=== PATIENT | female | born 1940 | race Caucasian/White ===

== ENCOUNTER 2022-11-04 18:13 | Inpatient (IN) | payer MEDICARE, OTHER ==
[~2022-11-04] VITALS: Ht 165.1 cm; Wt 79.4 kg
[~2022-11-04 18:13] MED LIST: ASPI1TAB2 PO; Rivaroxaban PO
--- NOTE | 2022-11-04 19:00 | NUR ---
TO ER BED 2. [id number] FROM HOME C/O BURNING URINATION X 2 DAYS AND SOB. DENIES HEMATURIA, DENIES FLANK PAIN. PT IS ALERT AND ORIENTED . AMBULATORY W/ ASSISTANCE. 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 LIVES WITH DAUGHTER. RR EVEN AND NON LABORED. CONNECTED TO POX AND HEART MONITOR
--- NOTE | 2022-11-04 19:53 | NUR ---
EMT AT PT'S BEDSIDE FOR EKG
--- NOTE | 2022-11-04 19:56 | NUR ---
AQUARIST AT PT'S BEDSIDE
--- NOTE | 2022-11-04 20:02 | NUR ---
IV LINE ESTABLISHED, RHAND 22G
--- NOTE | 2022-11-04 20:03 | NUR ---
COVID SWAB COLLECTED
--- NOTE | 2022-11-04 20:03 | NUR ---
BLOOD COLLECTED AND SENT TO LAB
--- NOTE | 2022-11-04 20:03 | NUR ---
URINE COLLECTED AND SENT TO LAB
[2022-11-04 20:19] LABS: BASOPHILS # (AUTO) 0.1 K/uL (0.0-0.2); MEAN CORPUSCULAR VOLUME 59 fL (82-100)
[2022-11-04 20:26] LABS: BILIRUBIN,URINE NEGATIVE (NEGATIVE); COLOR,URINE YELLOW (YELLOW); LEUKOCYTE ESTERASE ,URINE NEGATIVE (NEGATIVE); NITRITE, URINE NEGATIVE (NEGATIVE); PH,URINE 5.5 (5.0-8.0); PROTEIN,URINE NEGATIVE (NEGATIVE); UGLUCOSE NEGATIVE (NEGATIVE); UROBILINOGEN,URINE 0.2 EU/dL (0.2)
[2022-11-04 20:27] LABS: BASOPHILS % (AUTO) 1.2 % (0.0-2.0); LYMPHOCYTES # (AUTO) 2.5 K/uL (0.8-4.8); LYMPHOCYTES % (AUTO) 25.9 % (20.0-44.0); MEAN CORPUSCULAR HGB CONC 27 g/dl (31.0-36.0); MONOCYTES # (AUTO) 0.8 K/uL (0.1-1.30); MONOCYTES % (AUTO) 7.9 % (2.0-12.0); NEUTROPHILS # (AUTO) 5.4 K/uL (1.8-8.9); PLATELET COUNT (AUTO) 390 K/uL (150-450); WHITE BLOOD COUNT (AUTO) 9.5 K/uL (4.3-11.0)
[2022-11-04 20:43] LABS: HEMATOCRIT 19 % (33-45); HEMOGLOBIN 5.1 g/dL (11.5-14.8)
--- NOTE | 2022-11-04 20:44 | NUR ---
HGB 5.1, AWARE
--- NOTE | 2022-11-04 20:56 | NUR ---
CONSENT FOR BLOOD TRANSFUSSION SIGNED
[2022-11-04 21:20] LABS: EOSINOPHILS % (MANUAL) 4 % (0-4); LYMPHOCYTES % (MANUAL) 16 % (16-48); MONOCYTES % (MANUAL) 10 % (0-11.0); NEUTROPHILS % (MANUAL) 70 (42-76)
[2022-11-04] MEDS ORDERED: NAPROXEN 250 MG TABLET PO ONE (21:30)
[2022-11-04] MEDS ORDERED: NAPROXEN 250 MG TABLET ONE (21:32)
--- NOTE | 2022-11-04 21:54 | NUR ---
DR ONEILL ON THE PHONE EVERETT FROST , HOSPITALIST
[2022-11-04 22:02] LABS: ALBUMIN 3.3 g/dL (3.4-5.0); ALKALINE PHOSPHATASE 72 U/L (46-116); ASPARTATE AMINOTRANSFERASE 14 U/L (15-37); BILIRUBIN,DIRECT 0.2 mg/dL (0.0-0.2); BILIRUBIN,TOTAL 0.8 mg/dL (0.2-1.0); CALCIUM, SERUM 9.1 mg/dL (8.5-10.1); CARBON DIOXIDE 22 mmol/L (21-32); CHLORIDE 102 mmol/L (98-107); GLUCOSE 104 mg/dL (74-106); POTASSIUM 4.4 mmol/L (3.5-5.1); SODIUM SERUM 137 mmol/L (136-145); TOTAL PROTEIN, SERUM 6.7 g/dL (6.4-8.2); UREA NITROGEN, BLOOD 33 mg/dL (7-18)
--- NOTE | 2022-11-04 22:09 | NUR ---
LACTIC ACID 2.0, AWARE
--- NOTE | 2022-11-04 22:16 | NUR ---
MILK RUNNER AT PT'S BEDSIDE
--- NOTE | 2022-11-04 22:17 | NUR ---
BED 112-2
[2022-11-04 22:23] LABS: ALANINE AMINOTRANSFERASE 10 U/L (12-78)
--- NOTE | 2022-11-04 22:46 | NUR ---
FROST REINFORCING METAL WORKER AT PT'S BEDSIDE TO INSERTED MIDLINE
--- NOTE | 2022-11-04 22:57 | NUR ---
MIDLINE TO ROBYN INSERTED BY NIGEL FROST
[2022-11-04] MEDS: HYDROCODONE/APAP 5/325MG TABLET PO PRN (23:00)
--- NOTE | 2022-11-04 23:05 | NUR ---
REPORT GIVEN TO LUKAS PERALTA FOR KIMBERLY
--- NOTE | 2022-11-04 23:10 | NUR ---
BLOOD DRAWN AND GIVEN TO LAB
[2022-11-04] MEDS ORDERED: IOHEXOL-350 100 ML VIAL IV ONE (23:20)
[2022-11-04] MEDS ORDERED: IV NS 0.9% 250 ML IV ONE (23:21)
--- NOTE | 2022-11-04 23:30 | NUR ---
PT TAKEN TO CT SCAN
--- NOTE | 2022-11-04 23:40 | NUR ---
STEELWORKER NOTE RECEIVED REPORT FROM NURSE SUMA. PT BEING ADMITTED IN ROOM 112 WITH DIAGNOSIS OF ANEMIA, WITH HGB: 5.1. PT A/O X 4, ABLE TO MAKE NEEDS KNOWN. ABLE TO AMBULATE TO BATHROOM WITH ASSIST. PT HAS BRUISES TO RIGHT ARM, RIGHT LEG/THIGH, REDNESS TO SACRUM, AND PITTING EDEMA TO BLE. PICTURES NOT TAKEN DUE TO CAMERA NOT WORKING. ADMISSION COMPLETED. SHEREE FROM IMAGING CALLS WITH RESULT OF CT ANGIO. 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 MD CALLED RIGHT AWAY, AND MADE AWARE OF CT ANGIO RESULT. MD STATES THAT HE CAN NOT DO ANYTHING AT THIS TIME DUE TO PT BEING VERY ANEMIC. NO NEW ORDERS RECEIVED. SAFETY MEASURES IN PLACE: BED IN LOW POSITION, CALL LIGHT WITHIN REACH, SR UP X 2. WILL CONTINUE TO MONITOR PT.
[2022-11-04] MEDS ORDERED: TEMAZEPAM 7.5 MG CAPSULE PO PRN (23:45)
[2022-11-05] VITALS (8 sets, daily range): BP systolic 90–130; BP diastolic 30–74
[2022-11-05] MEDS ORDERED: ONDANSETRON HCL/PF 4 MG/2 ML VIAL IVP PRN
[2022-11-05] MEDS ORDERED: Z GUARD REMEDY 4 OZ OINT TP PRN
--- NOTE | 2022-11-05 03:35 | NUR ---
RIB CLOTH KNITTER NOTE ORDERED 2 UNITS OF BLOOD DUE TO LOW HGB: 5.1. BLOOD PICKED UP FORM LAB. BLOOD TRANSFUSION STARTED. VS: BP: 118/74, P:72, R:24, T:97.5, O2: 99. PT ON O2, 2LPM VIA N/C.
--- NOTE | 2022-11-05 03:50 | NUR ---
TIMBER POISONER NOTE BLOOD TRANSFUSION STILL RUNNING. NO S/S OF RESPIRATORY DISTRESS NOTED AFTER 15 MIN, NO ALLERGIC REACTION, VS FOLLOW: BP: 115/86, P: 61, R: 22, T: 98.0, 02: 100%. WILL CONTINUE TO MONITOR PT.
--- NOTE | 2022-11-05 06:50 | NUR ---
RN CLOSING NOTE BLOOD TRANSFUSION COMPLETED. PT TOLERATED BLOOD TRANSFUSION WELL; NO ALLERGIC REACTION NOTED. PT LEFT RESTING IN BED, AWAKE. PT IS CLEANED, AND CHANGED. NO ALL NEEDS ATTENDED. NO C/O PAIN AT THIS TIME. NO ACUTE DISTRESS NOTED. PT HAS MIDLINE TO RIGHT UA, AND RIGHT WRIST IV ACCESS, BOTH PATENT, AND FLUSHING WELL. SAFETY MEASURES IMPLEMENTED. WILL ENDORSE PT TO AM NURSE FOR KIMBERLY.
--- NOTE | 2022-11-05 07:29 | NUR ---
RN OPENING NOTE RECEIVED PATIENT AWAKE A/OX3 SITTING IN BED ABLE TO MAKE NEEDS KNOWN ON NASAL CANNULA 3L WITH NO CURRENT SIGNS OF RESPIRATORY DISTRESS. PATIENT JUST FINISHED RECEIVING ONE UNIT OF PRBC AND ONE UNIT IS PENDING. IF ACCESS NOTED TO BE A MIDLINE. PATIENT IS AMBULATORY BUT REMINDED TO CALL IF SHE NEEDS HELP. SAFETY MEASURE SIN PLACE PER HOSPITAL POLICY.
[2022-11-05] MEDS ORDERED: PANTOPRAZOLE 40 MG TABLET.DR PO SCH (07:30)
[2022-11-05] MEDS: CARVEDILOL 12.5 MG TABLET PO SCH ×2 (08:30→16:11)
[2022-11-05] MEDS ORDERED: ATOR10TA PO (09:53)
[2022-11-05] MEDS ORDERED: CARV25TA2 PO (09:53)
[2022-11-05] MEDS ORDERED: ASPI-1169 PO (09:53)
[2022-11-05] MEDS ORDERED: LOSA50TA39 PO (09:53)
[2022-11-05] MEDS ORDERED: ESOM20CA PO (09:53)
[2022-11-05] MEDS: HYDROCODONE/APAP 5/325MG TABLET PO PRN (09:55)
--- NOTE | 2022-11-05 11:10 | NUR ---
RN NOTE SECOND PRBC TRANSFUSED, NO REACTION NOTED PATIENT WILL BE DRAWN FOR LABS 1200.
[2022-11-05 13:12] LABS: BASOPHILS # (AUTO) 0.1 K/uL (0.0-0.2); BASOPHILS % (AUTO) 0.6 % (0.0-2.0); EOSINOPHILS % (AUTO) 7.7 % (0.0-6.0); HEMATOCRIT 25 % (33-45); HEMOGLOBIN 7.2 g/dL (11.5-14.8); LYMPHOCYTES # (AUTO) 1.1 K/uL (0.8-4.8); LYMPHOCYTES % (AUTO) 11.9 % (20.0-44.0); MEAN CORPUSCULAR HGB CONC 29 g/dl (31.0-36.0); MEAN CORPUSCULAR VOLUME 68 fL (82-100); MONOCYTES # (AUTO) 1.1 K/uL (0.1-1.30); MONOCYTES % (AUTO) 11.4 % (2.0-12.0); NEUTROPHILS # (AUTO) 6.4 K/uL (1.8-8.9); NEUTROPHILS % (AUTO) 68.4 % (43.0-81.0); PLATELET COUNT (AUTO) 309 K/uL (150-450); WHITE BLOOD COUNT (AUTO) 9.4 K/uL (4.3-11.0)
[2022-11-05 13:29] LABS: CALCIUM, SERUM 8.7 mg/dL (8.5-10.1); CARBON DIOXIDE 26 mmol/L (21-32); CHLORIDE 105 mmol/L (98-107); CREATININE 1.8 mg/dL (0.6-1.3); GLUCOSE 109 mg/dL (74-106); MAGNESIUM 1.8 mg/dL (1.8-2.4); PHOSPHORUS 4.3 mg/dL (2.5-4.9); POTASSIUM 4.2 mmol/L (3.5-5.1); SODIUM SERUM 138 mmol/L (136-145); UREA NITROGEN, BLOOD 30 mg/dL (7-18)
[2022-11-05 13:32] LABS: IRON, SERUM 139 ug/dl (50-175); TOTAL IRON BINDING CAPACITY 338 ug/dl (250-450)
[2022-11-05 13:45] LABS: FERRITIN 7 ng/mL (8-388); THYROID STIMULATING HORMONE 1.242 uIU/mL (0.358-3.74)
[2022-11-05 17:07] LABS: EOSINOPHILS % (MANUAL) 10 % (0-4); LYMPHOCYTES % (MANUAL) 6 % (16-48); MONOCYTES % (MANUAL) 12 % (0-11.0); NEUTROPHILS % (MANUAL) 72 (42-76)
--- NOTE | 2022-11-05 18:38 | NUR ---
RN CLOSING NOTE PATIENT RESTING IN BED , AWAKE. PT IS CLEANED, AND CHANGED. NO ALL NEEDS ATTENDED. PT PN ROOM AIR WITH NO CURRENT COMPLAINTS OF SOB OR PAIN. NO C/O PAIN AT THIS TIME. NO ACUTE DISTRESS NOTED. PT HAS MIDLINE INTACT , AND RIGHT WRIST IV ACCESS, BOTH PATENT, AND FLUSHING WELL. SAFETY MEASURES IMPLEMENTED. WILL ENDORSE PT TO PM NURSE FOR KIMBERLY.
--- NOTE | 2022-11-05 20:00 | NUR ---
agent telegrapher OPENING NOTE RECEIVED PATIENT IN BED AWAKE A/OX3 HOB ELEVATED ABLE TO MAKE NEEDS KNOWN ,ON R/A WITH NO CURRENT SIGNS OF RESPIRATORY DISTRESS. NO SOB NO DISTRESS NOTED .S/P 2 UNIT OF PRBC .NO ASE NOTED .ROBYN ML INTACT AND PATENT , ALL DUE MEDS .GIVEN ORDERED . SAFETY MEASURE IN PLACE PER HOSPITAL POLICY. WILL CONTINUE TO MONITOR PTS.
[2022-11-05] MEDS: PANTOPRAZOLE 40 MG VIAL IV SCH (20:45)
[2022-11-05] MEDS: ATORVASTATIN 10 MG TABLET PO SCH (21:02)
[2022-11-06] VITALS: BP 101/48
[2022-11-06 04:00] VITALS: BP 117/60
[2022-11-06 06:49] LABS: BASOPHILS # (AUTO) 0.1 K/uL (0.0-0.2); BASOPHILS % (AUTO) 0.7 % (0.0-2.0); EOSINOPHILS % (AUTO) 8.8 % (0.0-6.0); HEMATOCRIT 22 % (33-45); LYMPHOCYTES # (AUTO) 1.1 K/uL (0.8-4.8); LYMPHOCYTES % (AUTO) 14.3 % (20.0-44.0); MEAN CORPUSCULAR HGB CONC 29 g/dl (31.0-36.0); MEAN CORPUSCULAR VOLUME 68 fL (82-100); MONOCYTES # (AUTO) 0.8 K/uL (0.1-1.30); MONOCYTES % (AUTO) 11.3 % (2.0-12.0); NEUTROPHILS # (AUTO) 4.9 K/uL (1.8-8.9); NEUTROPHILS % (AUTO) 64.9 % (43.0-81.0); PLATELET COUNT (AUTO) 264 K/uL (150-450); RED BLOOD CELL COUNT(AUTO) 3.26 MIL/uL (4.0-5.2); WHITE BLOOD COUNT (AUTO) 7.5 K/uL (4.3-11.0)
--- NOTE | 2022-11-06 06:52 | NUR ---
RN CLOSING NOTE PATIENT RESTING IN BED , AWAKE. ALL NEEDS ATTENDED. ON 2 LITERS OF 02 VIA NC WITH NO CURRENT COMPLAINTS OF SOB OR PAIN. NO C/O PAIN AT THIS TIME. NO ACUTE DISTRESS NOTED. PT HAS MIDLINE INTACT , AND RIGHT WRIST IV ACCESS, BOTH PATENT, AND FLUSHING WELL. SAFETY MEASURES IMPLEMENTED. WILL ENDORSE PT TO AM NURSE FOR KIMBERLY.
[2022-11-06 07:03] LABS: HEMOGLOBIN 6.6 g/dL (11.5-14.8)
[2022-11-06 07:05] LABS: CALCIUM, SERUM 8.5 mg/dL (8.5-10.1); CARBON DIOXIDE 26 mmol/L (21-32); CHLORIDE 108 mmol/L (98-107); CREATININE 1.4 mg/dL (0.6-1.3); GLUCOSE 85 mg/dL (74-106); POTASSIUM 3.9 mmol/L (3.5-5.1); SODIUM SERUM 140 mmol/L (136-145); UREA NITROGEN, BLOOD 27 mg/dL (7-18)
[2022-11-06 08:00] VITALS: BP 114/35
--- NOTE | 2022-11-06 08:29 | NUR ---
WOUND CARE CONSULT: PT PRESENTS WITH LEFT UPPER HEMIPLEGIA, LESION/AREA OF PINK DISCOLORATION TO SACRUM AND GLUTEAL CREASE WITH BLANCHABLE REDNESS TO BUTTOCKS, PRESENT ON ADMISSION. RECOMMENDATIONS MADE FOR SKIN PROTECTION. DISCUSSED WITH NURSING STAFF. MD IN AGREEMENT WITH PLAN OF CARE.
[2022-11-06] MEDS: CARVEDILOL 12.5 MG TABLET PO SCH ×2 (09:54→17:00)
[2022-11-06] MEDS: PANTOPRAZOLE 40 MG VIAL IV SCH ×2 (09:54→21:22)
--- NOTE | 2022-11-06 11:36 | NUR ---
IHSS application: Per pt.'s daughter, Guicho [phone] request, BRENDAN emailed IHSS application and website: [email or web address] to Teri at [email or web address] . BRENDAN educated Teri on different ways to apply. Teri stated she will appply using these resources.
--- NOTE | 2022-11-06 12:00 | NUR ---
PATIENT REFUSED VITALS TO BE TAKEN AT THIS TIME.
[2022-11-06 12:39] LABS: ABG BASE EXCESS 0.4 mmol/L; ABG OXYGEN SATURATION 94.8 % (92.0-98.5); ABG PCO2 44.5 mmHg (35.0-45.0); ABG PH 7.378 (7.350-7.450); ABG PO2 78.2 mmHg (75.0-100.0); AaDO2 68.9 mmHg; COHb 1.6 % (0.5-1.5); MetHb 0.3 % (0.0-1.5); SITE, ABG Left Radial; VENT MODE, BG Nasal Cannula
[2022-11-06] MEDS ORDERED: LORAZEPAM 0.5 MG TABLET PO ONE (13:00)
[2022-11-06] MEDS ORDERED: LORAZEPAM 0.5 MG TABLET PO PRN (14:00)
[2022-11-06 16:00] VITALS: BP 105/33
[2022-11-06] MEDS: QUETIAPINE FUMARATE 25 MG TABLET PO SCH (17:16)
[2022-11-06 18:37] LABS: HEMOGLOBIN 6.9 g/dL (11.5-14.8)
--- NOTE | 2022-11-06 19:19 | NUR ---
RN CLOSING NOTE PATIENT RESTING IN BED, A/OX4. BREATHING ON 2 LITERS OF 02 VIA NC WITH NO CURRENT COMPLAINTS OF SOB OR PAIN. NO C/O PAIN AT THIS TIME. NO ACUTE DISTRESS NOTED. PT HAS MIDLINE INTACT AND FLUSHING WELL. SAFETY MEASURES IMPLEMENTED. WILL ENDORSE PT TO TRANSFER IRON OPERATOR NURSE FOR KIMBERLY.
[2022-11-06 20:00] VITALS: BP 112/42
--- NOTE | 2022-11-06 20:00 | NUR ---
telephone order clerk OPENING NOTE RECEIVED PATIENT IN BED AWAKE A/OX3 HOB ELEVATED ABLE TO MAKE NEEDS KNOWN ,ON 2LITERS OF O2 WITH NO CURRENT SIGNS OF RESPIRATORY DISTRESS. NO SOB NO DISTRESS NOTED .S/P 2 UNIT OF PRBC .NO ASE NOTED .ROBYN ML INTACT AND PATENT , ALL DUE MEDS .GIVEN ORDERED . SAFETY MEASURE IN PLACE PER HOSPITAL POLICY. WILL CONTINUE TO MONITOR PTS.
[2022-11-06] MEDS: ATORVASTATIN 10 MG TABLET PO SCH (21:23)
[2022-11-06 23:49] VITALS: BP 107/65
--- NOTE | 2022-11-06 23:50 | NUR ---
manager telemarketing notes 1 unit of PRBC started at 2350hrs v/s temp 98.5 hr71 rr22 Bp107/65 pts is comfortable in bed no sob no distress noted .Pts instructed to be npo post MN d/t ivc filter jamaal .will continue to monitor pts.
[2022-11-07] VITALS (10 sets, daily range): BP systolic 90–152; BP diastolic 49–81
--- NOTE | 2022-11-07 02:31 | NUR ---
telephone order dispatcher notes !unit prbc prbc completed at 0230hrs no ase noted.
[2022-11-07 05:47] LABS: BASOPHILS % (MANUAL) 0 % (0.0-2.0); EOSINOPHILS % (MANUAL) 4 % (0-4); LYMPHOCYTES % (MANUAL) 19 % (16-48); MONOCYTES % (MANUAL) 7 % (0-11.0); NEUTROPHILS % (MANUAL) 70 (42-76)
[2022-11-07] MEDS ORDERED: MORPHINE SULFATE INJ 2 MG/ML DISP.SYRIN IV ONE (06:30)
--- NOTE | 2022-11-07 06:30 | NUR ---
telecommunications switch technician notes PTs complain of pain 05/04 pts is npo at this time , spoke to dr saez with order morphine 2mg ivp x 1 dose BP 126/64 HR 90 rr 20 . order noted and carried out.
--- NOTE | 2022-11-07 06:49 | NUR ---
relay telegrapher notes Pts remains in bed awake a/o x 2 -3. remains on 2 liters of 02 via nc sating 100%
--- NOTE | 2022-11-07 07:14 | NUR ---
telephone maintainer notes Pts in bed comfortable endorse to rn shift for continuity of care.
--- NOTE | 2022-11-07 07:34 | NUR ---
telecom network manager OPENING NOTE RECEIVED PATIENT IN BED AWAKE A/OX2 HOB ELEVATED ABLE TO MAKE NEEDS KNOWN ,ON 1 LITERS OF O2 VIA N/C WITH NO CURRENT SIGNS OF RESPIRATORY DISTRESS. NO SOB NO DISTRESS NOTED .S/P 3 UNIT OF PRBC .NO ASE NOTED .ROBYN ML INTACT AND PATENT ,pATIEMNT IS SHEDILED FOR THE INFERIOE VENA CAVA FILTER PLACEMENT.PATIENT IS NPO BECAUSE OF THE SURGERY ALL DUE MEDS .GIVEN ORDERED . SAFETY MEASURE IN PLACE PER HOSPITAL POLICY. WILL CONTINUE TO MONITOR PTS AND FALLOW POC
[2022-11-07 07:36] LABS: CALCIUM, SERUM 8.5 mg/dL (8.5-10.1); CARBON DIOXIDE 26 mmol/L (21-32); CHLORIDE 109 mmol/L (98-107); CREATININE 1.4 mg/dL (0.6-1.3); GLUCOSE 94 mg/dL (74-106); POTASSIUM 4.1 mmol/L (3.5-5.1); SODIUM SERUM 143 mmol/L (136-145); UREA NITROGEN, BLOOD 28 mg/dL (7-18)
[2022-11-07] MEDS ORDERED: IOHEXOL 50 ML IV ONE (07:58)
[2022-11-07] MEDS ORDERED: LIDOCAINE HCL/MPF 1% 30 ML VIAL IJ ONE (07:59)
--- NOTE | 2022-11-07 08:16 | NUR ---
RN NOTE PATIENTR IS TAKING TO THE OR ROOM
[2022-11-07 08:19] LABS: HEMOGLOBIN 7.8 g/dL (11.5-14.8)
[2022-11-07] MEDS ORDERED: FENTANYL PF 100MCG/2ML AMPUL ONE (08:32)
[2022-11-07] MEDS ORDERED: MIDAZOLAM HCL 2 MG/2ML VIAL ONE (08:33)
[2022-11-07] MEDS ORDERED: ASPIRIN 81 MG TAB.CHEW PO SCH (09:00)
--- NOTE | 2022-11-07 09:30 | NUR ---
RN NOTE PATIENT BROUGHT BACK FROM OR , FEELING WEEL , DENIELS ANY PAIN , BP 110/75 , HR 86 , TEMP 97.8 , RESP 78 , O2 SAT 98 %
[2022-11-07] MEDS: CARVEDILOL 12.5 MG TABLET PO SCH ×2 (09:52→16:09)
[2022-11-07] MEDS: PANTOPRAZOLE 40 MG VIAL IV SCH ×2 (09:52→20:29)
[2022-11-07] MEDS: QUETIAPINE FUMARATE 25 MG TABLET PO SCH ×2 (09:53→16:09)
[2022-11-07] MEDS: HYDROCODONE/APAP 5/325MG TABLET PO PRN ×2 (12:19→18:28)
[2022-11-07] MEDS: DOCUSATE SODIUM 100 MG CAPSULE PO SCH (16:09)
--- NOTE | 2022-11-07 16:10 | NUR ---
rn note Coreg wasn't given due to patient had low BP 105/75 , hr 78
[2022-11-07 18:31] LABS: HEMOGLOBIN 7.4 g/dL (11.5-14.8)
--- NOTE | 2022-11-07 18:36 | NUR ---
RN CLOSING NOTE PATIENT IN BED SLEEPING HOB ELEVATED, STILL SEDATED S/P IVC FILTER PLACMENT ABLE TO MAKE NEEDS KNOWN ,ON 4 LITERS OF O2 VIA N/C 02 SAT 99 % WITH NO CURRENT SIGNS OF RESPIRATORY DISTRESS. NO SOB NO DISTRESS NOTED .NO ASE NOTED .KAREN ML INTACT AND PATENT PATIENT IS ON CARDIAC DIET .ALL MEDICATIONS WERE ADMINISTERED , ALL NEEDS WERE MET SAFETY MEASURE IN PLACE PER HOSPITAL POLICY. WILL ENDORSE THEATER MANAGER NURSE TO FALLOW POC
--- NOTE | 2022-11-07 20:00 | NUR ---
COLLATOR HAND OPENING NOTES RECEIVED PATIENT IN BED ASLEEP BUT EASILY AROUSE , A/OX2 HOB ELEVATED ,ON 4 LITERS OF O2 VIA N/C WITH NO CURRENT SIGNS OF RESPIRATORY DISTRESS. NO SOB NO DISTRESS NOTED .S/P IVC FILTER . KAREN ML INTACT AND PATENT .DUE MEDS GIVEN ORDERED . SAFETY MEASURE IN PLACE PER HOSPITAL POLICY. WILL CONTINUE TO MONITOR PTS.
--- NOTE | 2022-11-07 21:00 | NUR ---
telephoto installer notes Pts noted with temp 100.7 cooling measures applied due meds given as ordered. will continue to monitor pts.
[2022-11-07] MEDS: ATORVASTATIN 10 MG TABLET PO SCH (21:02)
--- NOTE | 2022-11-07 22:00 | NUR ---
ALTERNATIVE EDUCATION TEACHER NOTES PTS COMFORTABLY SLEEPING NO SOB NO DISTRESS NOTED O2 TITRATED TO 2LITERS OF O2 VIA NC WELL TOLERATED BY PTS.
[2022-11-07] MEDS: ACETAMINOPHEN 325 MG TABLET PO PRN (23:38)
--- NOTE | 2022-11-07 23:40 | NUR ---
insulator apprentice notes Temperature check 100.4 continue on cooling measures ,tylenol 650mg via po given as ordered all needs attended too call light within reach will continue to monitor
[2022-11-08] VITALS: BP 103/43
--- NOTE | 2022-11-08 | NUR ---
television picture tube rebuilder notes PTS Temperature at this time is 99. continue cooling measures
[2022-11-08 04:00] VITALS: BP 127/62
[2022-11-08 06:13] LABS: BASOPHILS % (AUTO) 0.5 % (0.0-2.0); EOSINOPHILS % (AUTO) 6.6 % (0.0-6.0); HEMATOCRIT 27 % (33-45); LYMPHOCYTES % (AUTO) 10.4 % (20.0-44.0); MEAN CORPUSCULAR HGB CONC 29 g/dl (31.0-36.0); MEAN CORPUSCULAR VOLUME 73 fL (82-100); MONOCYTES # (AUTO) 1.3 K/uL (0.1-1.30); MONOCYTES % (AUTO) 13.9 % (2.0-12.0); NEUTROPHILS # (AUTO) 6.5 K/uL (1.8-8.9); NEUTROPHILS % (AUTO) 68.6 % (43.0-81.0); PLATELET COUNT (AUTO) 205 K/uL (150-450); RED BLOOD CELL COUNT(AUTO) 3.74 MIL/uL (4.0-5.2); WHITE BLOOD COUNT (AUTO) 9.5 K/uL (4.3-11.0)
[2022-11-08] MEDS: HYDROCODONE/APAP 5/325MG TABLET PO PRN ×3 (06:22→21:21)
--- NOTE | 2022-11-08 06:23 | NUR ---
telegraphic typewriter installer notes Pts c/o of pain norco 5-325 ,1 tab given as ordered with effect.Pts remains in bed awake and responsive Pts on 02 at 2 liters via nc no sob no distress noted all needs attended too , spoke to daughter vida updated with pts condition, v/s stable afebrile.will endorse to rn day shift for continuity of care.
[2022-11-08 06:27] LABS: CALCIUM, SERUM 8.6 mg/dL (8.5-10.1); CARBON DIOXIDE 28 mmol/L (21-32); CHLORIDE 110 mmol/L (98-107); CREATININE 1.5 mg/dL (0.6-1.3); GLUCOSE 95 mg/dL (74-106); SODIUM SERUM 145 mmol/L (136-145); UREA NITROGEN, BLOOD 29 mg/dL (7-18)
--- NOTE | 2022-11-08 07:15 | NUR ---
MANAGER OF DEVELOPMENT OPENING NOTE PATIENT IN BED AWAKE, ALERT, OX3, ON 4 LITERS OF O2 VIA N/C, NO CURRENT SIGNS OF RESPIRATORY DISTRESS. NO SOB NO DISTRESS NOTED. KAREN ML INTACT AND PATENT. CANDELARIO CATHETER DRAINING BY GRAVITY 150ML CLEAR YELLOW URINE. SAFETY MEASURE IN PLACE PER HOSPITAL POLICY. WILL CONTINUE TO MONITOR.
[2022-11-08 08:00] VITALS: BP 106/62
[2022-11-08] MEDS: PANTOPRAZOLE 40 MG VIAL IV SCH ×2 (08:53→21:11)
[2022-11-08] MEDS: QUETIAPINE FUMARATE 25 MG TABLET PO SCH ×2 (08:54→17:00)
[2022-11-08] MEDS: DOCUSATE SODIUM 100 MG CAPSULE PO SCH ×2 (08:54→17:21)
[2022-11-08] MEDS: CARVEDILOL 12.5 MG TABLET PO SCH ×2 (08:56→17:00)
[2022-11-08] MEDS: POLYETHYLENE GLYCOL 3350 17 GM POWD.PACK PO PRN (09:51)
--- NOTE | 2022-11-08 10:00 | NUR ---
RN NOTE INFORMED HOSPITALIST MYA KONG PT HAD ONE UNIT OF PRBC READY FOR, CURRENT HBG 8.0. PER HOSPITALIST DO NOT ADMINISTER AT THIS TIME
[2022-11-08] MEDS: ACETAMINOPHEN 325 MG TABLET PO PRN (10:58)
--- NOTE | 2022-11-08 10:58 | NUR ---
PT C/O GENERALIZED PAIN AND MILD HEADACHE. TYLENOL 650 MG PER PRN ORDER GIVEN. WILL REASSESS PT CONDITION IN 30 MIN.
[2022-11-08 12:00] VITALS: BP 116/59
[2022-11-08] MEDS ORDERED: HYDROCODONE/APAP 5/325MG TABLET PO PRN (12:30)
--- NOTE | 2022-11-08 14:56 | NUR ---
RN NOTE PATIENT O2 98% ON 4L NC TITRATED TO 2L NC CURRENT O2 SAT 96. WILL MONITOR AND IF TOLERATING WILL CONTINUE TO TITRATE
[2022-11-08 16:00] VITALS: BP 93/46
--- NOTE | 2022-11-08 17:26 | NUR ---
COREG 25MG WAS NON ADMINISTERED DUE TO LOW BLOOD PRESSURE 93/46. SEROQUEL 12.5MG WAS NON ADMINISTERED, PER PATIENTS DAUGHTER, PT BECOMES DRAGGED, REFUSED.
[2022-11-08 17:58] LABS: EOSINOPHILS % (MANUAL) 2 % (0-4); LYMPHOCYTES % (MANUAL) 7 % (16-48); MONOCYTES % (MANUAL) 13 % (0-11.0); NEUTROPHILS % (MANUAL) 78 (42-76)
--- NOTE | 2022-11-08 18:07 | NUR ---
RN NOTE ATTEMPTED TO PLACE PATIENT ON ROOM AIR 02 DROPPED TO 90% PT STATED " I CANT BREATH" PLACED PATIENT BACK ON 2L O2 SAT 94% PATIENT STATED SHE FELT BETTER
--- NOTE | 2022-11-08 18:56 | NUR ---
RN CLOSING NOTE PATIENT IN BED SLEEPING HOB ELEVATED, ABLE TO MAKE NEEDS KNOWN ,ON 2 LITERS OF O2 VIA N/C 02 SAT 93% WITH NO CURRENT SIGNS OF RESPIRATORY DISTRESS. NO SOB NO DISTRESS NOTED .NO ASE NOTED .KAERN ML INTACT AND PATENT PATIENT IS ON CARDIAC DIET .ALL MEDICATIONS WERE ADMINISTERED , ALL NEEDS WERE MET SAFETY MEASURE IN PLACE PER HOSPITAL POLICY. WILL ENDORSE TRAUMA REGISTRAR NURSE TO FALLOW POC
--- NOTE | 2022-11-08 19:30 | NUR ---
ROTARY LITHOGRAPHIC PRESS OPERATOR OPENING NOTES RECEIVED PATIENT RESTING IN BED, HOB ELEVATED. A/O X3, ABLE TO MAKE NEEDS KNOWN, ON O2 2L VIA NC, WITH NO SIGNS OF RESPIRATORY DISTRESS. NO PAIN NOTED AT THIS TIME. PT REQUESTING SOMETHING TO HELP HER SLEEP FOR THE NIGHT. KAREN ML INTACT AND PATENT. CANDELARIO INTACT, DRAINING CARMEN URINE. SAFETY MEASURES IN PLACE: BED LOCKED AND IN LOWEST POSITION, SIDE RAILS UP X3, CALL LIGHT AND TRAY TABLE WITHIN REACH. WILL CONTINUE TO MONITOR AND ASSIST.
[2022-11-08 20:00] VITALS: BP 116/67
--- NOTE | 2022-11-08 21:05 | NUR ---
RN NOTES PT SHOWING TALL T WAVES CLOSE TO QRS COMPLEX HEIGHT ON TELE MONITOR. VS: 98.2F, 82 HR, 18 RR, 98%O2, 116/67 BP. LABS: SODIUM 145, POTASSIUM 4.0. PT C/O OF GROIN PAIN. S/P IVC FILTER. MD NOTIFIED AND RESPONDED WITH NO ADDITIONAL ORDERS. WILL CONTINUE TO MONITOR PATIENT.
[2022-11-08] MEDS: ATORVASTATIN 10 MG TABLET PO SCH (21:11)
[2022-11-09] VITALS: BP 120/60
[2022-11-09 04:00] VITALS: BP 126/72
--- NOTE | 2022-11-09 06:41 | NUR ---
BAG MACHINE ADJUSTER CLOSING NOTES PATIENT RESTING IN BED AT THIS TIME. A/O X3, [place] SPEAKING, ABLE TO MAKE NEEDS KNOWN. STABLE ON O2 3L VIA NC WITH NO SIGNS OF RESPIRATORY DISTRESS. NO PAIN NOTED AT THIS TIME. ON TELE MONITOR READING SR WITH TALL T WAVES @ 75 BPM. CANDELARIO CATHETER DRAINED 600 ML OF CLEAR, YELLOW URINE. KAREN MIDLINE SL, INTACT AND PATENT. ALL CARE PROVIDED AND MEDS TOLERATED WELL. SAFETY MEASURES MAINTAINED: BED LOCKED AND IN LOWEST POSITION, SIDE RAILS UP X3, CALL LIGHT AND TRAY TABLE WITHIN REACH. WILL ENDORSE KIMBERLY TO DAY SHIFT NURSE.
[2022-11-09 08:00] VITALS: BP 130/69
[2022-11-09] MEDS: DOCUSATE SODIUM 100 MG CAPSULE PO SCH ×2 (08:21→17:44)
[2022-11-09] MEDS: PANTOPRAZOLE 40 MG VIAL IV SCH ×2 (08:21→21:36)
[2022-11-09] MEDS: QUETIAPINE FUMARATE 25 MG TABLET PO SCH ×2 (08:22→17:44)
[2022-11-09 08:24] LABS: CALCIUM, SERUM 8.4 mg/dL (8.5-10.1); CREATININE 1.2 mg/dL (0.6-1.3); POTASSIUM 4.3 mmol/L (3.5-5.1)
[2022-11-09 09:07] LABS: BASOPHILS % (AUTO) 0.5 % (0.0-2.0); EOSINOPHILS % (AUTO) 4.6 % (0.0-6.0); HEMATOCRIT 26 % (33-45); HEMOGLOBIN 7.8 g/dL (11.5-14.8); LYMPHOCYTES % (AUTO) 10.5 % (20.0-44.0); MEAN CORPUSCULAR HGB CONC 29 g/dl (31.0-36.0); MEAN CORPUSCULAR VOLUME 74 fL (82-100); MONOCYTES # (AUTO) 1.5 K/uL (0.1-1.30); MONOCYTES % (AUTO) 15.8 % (2.0-12.0); NEUTROPHILS # (AUTO) 6.5 K/uL (1.8-8.9); NEUTROPHILS % (AUTO) 68.6 % (43.0-81.0); PLATELET COUNT (AUTO) 194 K/uL (150-450); RED BLOOD CELL COUNT(AUTO) 3.56 MIL/uL (4.0-5.2); WHITE BLOOD COUNT (AUTO) 9.5 K/uL (4.3-11.0)
[2022-11-09] MEDS: CARVEDILOL 12.5 MG TABLET PO SCH ×2 (09:27→17:44)
[2022-11-09] MEDS: HYDROCODONE/APAP 5/325MG TABLET PO PRN (09:29)
--- NOTE | 2022-11-09 09:30 | NUR ---
RN NOTE PATIENT MANAGES TO REMOVE HER GOWN WHEN SHE FEELS WORM. WAS EXPLAINED TO PATIENT'S DAUGHTER THERE ARE SOME MISUNDERSTANDING SHE THOUGHT NURSE OR SEAWEED HARVESTER LEFT IT NAKED, BUT AFTER SHE WAS UNDERSTOOD SHE APOLOGIZED ME AND THE CHARGE NURSE SOON. WE BOTH VERBALIZED UNDERSTANDING OF HOW WE FEEL TOWARDS OUR MOTHER AND PROBLEM WAS RESOLVED.
[2022-11-09] MEDS ORDERED: POLYETHYLENE GLYCOL 3350 17 GM POWD.PACK PO PRN (10:00)
[2022-11-09] MEDS: POLYETHYLENE GLYCOL 3350 17 GM POWD.PACK PO PRN (10:06)
[2022-11-09 12:00] VITALS: BP 118/60
[2022-11-09] MEDS ORDERED: PHENYLEPHRINE/SHK LV/MO/PET,WH 30 GM TUBE RC PRN (12:00)
[2022-11-09] MEDS: BISACODYL SUPP (10 MG) 10 MG/SUPP.RECT SUPP.RECT RC PRN (12:36)
[2022-11-09] MEDS: Z GUARD REMEDY 4 OZ OINT TP SCH ×2 (14:46→21:37)
[2022-11-09 16:00] VITALS: BP 138/70
[2022-11-09] MEDS: APIXABAN 2.5 MG TABLET PO SCH (17:45)
--- NOTE | 2022-11-09 18:54 | NUR ---
RN CLOSING NOTE PATIENT IN BED SLEEPING HOB ELEVATED, ABLE TO MAKE NEEDS KNOWN DAUGHTER AT BEDSIDE SINCE 0900 TO 1800,ON 2 LITERS OF O2 VIA N/C 02 SAT 96% WITH NO CURRENT SIGNS OF RESPIRATORY DISTRESS. NO SOB NO DISTRESS NOTED. KAREN ML INTACT AND PATENT PATIENT IS ON CARDIAC DIET. ALL MEDICATIONS WERE ADMINISTERED , ALL NEEDS WERE MET SAFETY MEASURE IN PLACE. WILL ENDORSE POURER BULL LADLE NURSE TO FALLOW POC
--- NOTE | 2022-11-09 19:10 | NUR ---
RN MED SURGE OPEN NOTE: ALERT TO NAME, AND TIME. REORIENTED NEEDED. ON 02 3LMP NC SATING AT 96 %. ON ARCHITECTURE DRAFTER SINUS RHYTHM. IV ON LEFT UPPER ARM MIDLINE SALINE LOCKED. PATENT INTACT. NO S/S OF COMPLICATIONS. CANDELARIO CATHETER IN PLACE DRAINING YELLOW URINE. KEPT CLEAN AND COMFORTABLE. DECLINES PAIN OR DISCOMFORT. SKIN IS WARM AND DRY TO TOUCH. HOB ELEVATED SEMI-FOWLERS POSITION, BILATERAL HALF SIDE RAILS UPX2. BED IN LOW POSITION, EXIT ALARM ON, LOCKED. CALL LIGHT IN REACH.
[2022-11-09 20:00] VITALS: BP 112/51
[2022-11-09 20:55] LABS: EOSINOPHILS % (MANUAL) 5 % (0-4); LYMPHOCYTES % (MANUAL) 5 % (16-48); MONOCYTES % (MANUAL) 4 % (0-11.0); NEUTROPHILS % (MANUAL) 86 (42-76)
[2022-11-09] MEDS: ATORVASTATIN 10 MG TABLET PO SCH (21:37)
[2022-11-10] VITALS (13 sets, daily range): BP systolic 97–125; BP diastolic 48–71
[2022-11-10 06:10] LABS: CALCIUM, SERUM 8.3 mg/dL (8.5-10.1); CREATININE 1.2 mg/dL (0.6-1.3); POTASSIUM 4.2 mmol/L (3.5-5.1)
[2022-11-10 06:22] LABS: BASOPHILS % (AUTO) 0.5 % (0.0-2.0); HEMATOCRIT 24 % (33-45); HEMOGLOBIN 7.2 g/dL (11.5-14.8); LYMPHOCYTES # (AUTO) 1.3 K/uL (0.8-4.8); LYMPHOCYTES % (AUTO) 15.3 % (20.0-44.0); MEAN CORPUSCULAR HGB CONC 30 g/dl (31.0-36.0); MEAN CORPUSCULAR VOLUME 73 fL (82-100); MONOCYTES # (AUTO) 1.1 K/uL (0.1-1.30); MONOCYTES % (AUTO) 12.9 % (2.0-12.0); NEUTROPHILS # (AUTO) 5.5 K/uL (1.8-8.9); NEUTROPHILS % (AUTO) 67.3 % (43.0-81.0); PLATELET COUNT (AUTO) 174 K/uL (150-450); RED BLOOD CELL COUNT(AUTO) 3.34 MIL/uL (4.0-5.2); WHITE BLOOD COUNT (AUTO) 8.2 K/uL (4.3-11.0)
--- NOTE | 2022-11-10 07:20 | NUR ---
HOME THEATER EXPERT OPENING NOTES RECEIVED PATIENT RESTING IN BED, HOB ELEVATED. A/O X3, ABLE TO MAKE NEEDS KNOWN, ON O2 2L VIA NC, WITH NO SIGNS OF RESPIRATORY DISTRESS. NO PAIN NOTED AT THIS TIME. KAREN ML INTACT AND PATENT. CANDELARIO INTACT, DRAINING CARMEN URINE. SAFETY MEASURES IN PLACE: BED LOCKED AND IN LOWEST POSITION, SIDE RAILS UP X3, CALL LIGHT AND TRAY TABLE WITHIN REACH. WILL CONTINUE TO MONITOR AND FALLOW POC.
[2022-11-10] MEDS: QUETIAPINE FUMARATE 25 MG TABLET PO SCH (08:19)
[2022-11-10] MEDS: PANTOPRAZOLE 40 MG VIAL IV SCH ×2 (08:19→20:16)
[2022-11-10] MEDS: DOCUSATE SODIUM 100 MG CAPSULE PO SCH ×2 (08:19→16:47)
[2022-11-10] MEDS: APIXABAN 2.5 MG TABLET PO SCH ×2 (08:20→16:47)
[2022-11-10] MEDS: CARVEDILOL 12.5 MG TABLET PO SCH ×2 (08:47→17:00)
[2022-11-10] MEDS: Z GUARD REMEDY 4 OZ OINT TP SCH ×2 (09:20→20:16)
[2022-11-10] MEDS: TRAMADOL HCL 50 MG TABLET PO PRN ×2 (10:01→20:15)
[2022-11-10] MEDS: diphenhydrAMINE HCL 25 MG CAPSULE PO PRN ×2 (11:01→17:53)
--- NOTE | 2022-11-10 15:12 | NUR ---
rn note patient was giveb to the rn Sylvia to fallow up for the rest of the shift
--- NOTE | 2022-11-10 15:15 | NUR ---
C.O.D. AUDIT CLERK NOTE RECEIVED PATIENT IN BED, AWAKE, IV ACCESS RIGHT AC MIDLINE, FLUSHES WELL. O2 VIA NC AT 3L SAT 97%. CANDELARIO CATHETER IN PLACE, DRAINING YELLOW CLEAR URINE. WILL CONTINUE MONITOR.
--- NOTE | 2022-11-10 15:20 | NUR ---
PICKET UP ONE UNIT OF BLOOD FOR PT FROM LAB. ALL INFORMATION VERIFIED. VITAL SIGNS: BP 107/51; HEART RATE 89; O2 96, ORAL TEM 98.1. PT IS AWAKE.
--- NOTE | 2022-11-10 19:17 | NUR ---
TAXI SERVICER CLOSING NOTES PATIENT RESTING IN BED AT THIS TIME. ALERT, ABLE TO MAKE NEEDS KNOWN. STABLE ON O2 3L VIA NC WITH NO SIGNS OF RESPIRATORY DISTRESS. NO PAIN NOTED AT THIS TIME. ON TELE MONITOR SR. CANDELARIO CATHETER DRAINED 900 ML OF CLEAR, YELLOW URINE. KAREN MIDLINE SL, INTACT AND PATENT. ALL CARE PROVIDED AND MEDS TOLERATED WELL. SAFETY MEASURES MAINTAINED: BED LOCKED AND IN LOWEST POSITION, SIDE RAILS UP X3, CALL LIGHT AND TRAY TABLE WITHIN REACH. WILL ENDORSE KIMBERLY TO DAY SHIFT NURSE.
--- NOTE | 2022-11-10 19:57 | NUR ---
DYE COLORIST FORMULATOR OPENING NOTES PATIENT RESTING IN BED AT THIS TIME. ALERT, ABLE TO MAKE NEEDS KNOWN. STABLE ON O2 3L VIA NC WITH NO SIGNS OF RESPIRATORY DISTRESS. NO PAIN NOTED AT THIS TIME. ON TELE MONITOR SR. CANDELARIO CATHETER DRAINING, CLEAR YELLOW URINE. KAREN MIDLINE SL, INTACT AND PATENT. SAFETY MEASURES MAINTAINED: BED LOCKED AND IN LOWEST POSITION, SIDE RAILS UP X3, CALL LIGHT AND TRAY TABLE WITHIN REACH.
--- NOTE | 2022-11-10 20:29 | NUR ---
RN NOTE PT REPORTING GENERALIZED BODY PAIN PRN TRAMADOL GIVEN AND TOLERATED WELL.
[2022-11-10 22:19] LABS: BAND % (MANUAL) 3 % (0.0-5.0); EOSINOPHILS % (MANUAL) 2 % (0-4); LYMPHOCYTES % (MANUAL) 11 % (16-48); MONOCYTES % (MANUAL) 9 % (0-11.0); NEUTROPHILS % (MANUAL) 75 (42-76)
[2022-11-10] MEDS: ATORVASTATIN 10 MG TABLET PO SCH (22:31)
[2022-11-11] VITALS: BP 118/70
[2022-11-11 04:47] VITALS: BP 121/56
--- NOTE | 2022-11-11 06:29 | NUR ---
PROCESSING ANALYST CLOSING NOTES PATIENT RESTING IN BED AT THIS TIME. ALERT, ABLE TO MAKE NEEDS KNOWN. STABLE ON O2 3L VIA NC WITH NO SIGNS OF RESPIRATORY DISTRESS. NO PAIN NOTED AT THIS TIME. ON TELE MONITOR SR. CANDELARIO CATHETER DRAINING, CLEAR YELLOW URINE. KAREN MIDLINE SL, INTACT AND PATENT SL. SAFETY MEASURES MAINTAINED: BED LOCKED AND IN LOWEST POSITION, SIDE RAILS UP X3, CALL LIGHT AND TRAY TABLE WITHIN REACH. WILL ENDORSE CARE TO DAY SHIFT NURSE.
--- NOTE | 2022-11-11 07:58 | NUR ---
RN NOTE PT RECEIVED IN BED, IN O2 VIA NC @ 3L. TOLERATING WELL. WITH IV ACCESS ON KAREN ML. NO IVF. SAFETY MEASURES FOLLOWED. WILL CONTINUE TO MONITOR.
[2022-11-11 08:00] VITALS: BP 105/55
[2022-11-11] MEDS: DOCUSATE SODIUM 100 MG CAPSULE PO SCH ×2 (08:58→17:56)
[2022-11-11] MEDS: PANTOPRAZOLE 40 MG VIAL IV SCH (08:58)
[2022-11-11] MEDS: TRAMADOL HCL 50 MG TABLET PO PRN ×2 (08:58→21:42)
[2022-11-11] MEDS: CARVEDILOL 12.5 MG TABLET PO SCH ×2 (09:00→17:56)
[2022-11-11 09:21] LABS: BASOPHILS % (AUTO) 0.5 % (0.0-2.0); EOSINOPHILS % (AUTO) 8.2 % (0.0-6.0); HEMATOCRIT 27 % (33-45); HEMOGLOBIN 8.3 g/dL (11.5-14.8); LYMPHOCYTES # (AUTO) 0.9 K/uL (0.8-4.8); LYMPHOCYTES % (AUTO) 12.6 % (20.0-44.0); MEAN CORPUSCULAR HGB CONC 30 g/dl (31.0-36.0); MEAN CORPUSCULAR VOLUME 75 fL (82-100); MONOCYTES % (AUTO) 13.6 % (2.0-12.0); NEUTROPHILS # (AUTO) 4.9 K/uL (1.8-8.9); NEUTROPHILS % (AUTO) 65.1 % (43.0-81.0); PLATELET COUNT (AUTO) 182 K/uL (150-450); RED BLOOD CELL COUNT(AUTO) 3.65 MIL/uL (4.0-5.2); WHITE BLOOD COUNT (AUTO) 7.5 K/uL (4.3-11.0)
[2022-11-11] MEDS: Z GUARD REMEDY 4 OZ OINT TP SCH ×2 (09:31→20:47)
[2022-11-11 09:33] LABS: CALCIUM, SERUM 8.7 mg/dL (8.5-10.1); POTASSIUM 4.4 mmol/L (3.5-5.1)
[2022-11-11] MEDS: APIXABAN 2.5 MG TABLET PO SCH ×2 (10:39→17:57)
[2022-11-11 12:00] VITALS: BP 106/44
[2022-11-11] MEDS: diphenhydrAMINE HCL 25 MG CAPSULE PO PRN ×2 (13:22→20:47)
[2022-11-11] MEDS: ACETAMINOPHEN 325 MG TABLET PO PRN (15:01)
[2022-11-11 16:00] VITALS: BP 106/44
[2022-11-11 16:17] LABS: EOSINOPHILS % (MANUAL) 5 % (0-4); LYMPHOCYTES % (MANUAL) 8 % (16-48); MONOCYTES % (MANUAL) 11 % (0-11.0); NEUTROPHILS % (MANUAL) 76 (42-76)
--- NOTE | 2022-11-11 19:10 | NUR ---
noc rn note received patient in bed, a/ox3. no s/s of apparent distress in 2lpm of o2 via nc. denies pain at this time. no fluids running. olivera draining clear, dark yellow urine. call light within reach. safety in place. will continue with patient's plan of care.
[2022-11-11 20:00] VITALS: BP 115/57
[2022-11-11] MEDS: PANTOPRAZOLE 40 MG TABLET.DR PO SCH (20:47)
--- NOTE | 2022-11-11 20:47 | NUR ---
noc rn note patient c/o severe itchiness, given Benadryl PO as ordered PRN per patient request.
[2022-11-11] MEDS ORDERED: HYDROCORTISONE 1% CREAM 28.35 GM TUBE TP SCH (21:00)
[2022-11-11] MEDS: ATORVASTATIN 10 MG TABLET PO SCH (21:40)
--- NOTE | 2022-11-11 21:42 | NUR ---
noc rn note patient c/o 8/10 pain on her groin area and her sides with facial grimacing and restlessness. given Ultram as ordered PRN. will re-assess.
[2022-11-12] VITALS: BP 135/66
[2022-11-12] MEDS: diphenhydrAMINE HCL 25 MG CAPSULE PO PRN ×2 (03:54→11:30)
--- NOTE | 2022-11-12 03:54 | NUR ---
noc rn note patient c/o severe itchiness, given Benadryl PO as ordered PRN per patient request.
[2022-11-12 04:00] VITALS: BP 110/65
[2022-11-12] MEDS: ACETAMINOPHEN 325 MG TABLET PO PRN ×2 (06:21→18:22)
--- NOTE | 2022-11-12 06:26 | NUR ---
note rn note patient c/o headache. told patient that maybe she is just hungry, patient given snacks before given tylenol as per her request. made sure patient ate something before hand. given tylenol as ordered PRN.
[2022-11-12 06:31] LABS: BASOPHILS % (AUTO) 0.3 % (0.0-2.0); EOSINOPHILS % (AUTO) 12.2 % (0.0-6.0); HEMATOCRIT 28 % (33-45); HEMOGLOBIN 8.4 g/dL (11.5-14.8); LYMPHOCYTES # (AUTO) 0.8 K/uL (0.8-4.8); LYMPHOCYTES % (AUTO) 13.6 % (20.0-44.0); MEAN CORPUSCULAR HGB CONC 30 g/dl (31.0-36.0); MEAN CORPUSCULAR VOLUME 75 fL (82-100); MONOCYTES # (AUTO) 0.9 K/uL (0.1-1.30); MONOCYTES % (AUTO) 15.2 % (2.0-12.0); NEUTROPHILS # (AUTO) 3.5 K/uL (1.8-8.9); NEUTROPHILS % (AUTO) 58.7 % (43.0-81.0); PLATELET COUNT (AUTO) 177 K/uL (150-450); RED BLOOD CELL COUNT(AUTO) 3.77 MIL/uL (4.0-5.2); WHITE BLOOD COUNT (AUTO) 5.9 K/uL (4.3-11.0)
--- NOTE | 2022-11-12 06:55 | NUR ---
noc rn closing note Ongoing dialysis at this time. patient comfortably sleeping with Bipap still on per patient request. no s/s of apparent distress and no c/o pain at this time. all needs attended. all scheduled medication administered. no significant change on my shift. will endorse to morning shift RN for continuity of patient care.
[2022-11-12 06:56] LABS: CALCIUM, SERUM 8.7 mg/dL (8.5-10.1)
[2022-11-12 08:00] VITALS: BP 139/57
[2022-11-12] MEDS: CARVEDILOL 12.5 MG TABLET PO SCH ×2 (08:25→16:37)
[2022-11-12] MEDS: DOCUSATE SODIUM 100 MG CAPSULE PO SCH ×2 (08:25→16:37)
[2022-11-12] MEDS: PANTOPRAZOLE 40 MG TABLET.DR PO SCH (08:25)
[2022-11-12] MEDS: Z GUARD REMEDY 4 OZ OINT TP SCH (08:26)
[2022-11-12] MEDS: APIXABAN 2.5 MG TABLET PO SCH ×2 (08:30→16:38)
--- NOTE | 2022-11-12 09:26 | NUR ---
per dr. rigoberto butler calorie count per daughter she bring her own food to fed pt. , aware.
[2022-11-12 11:01] LABS: EOSINOPHILS % (MANUAL) 14 % (0-4); LYMPHOCYTES % (MANUAL) 5 % (16-48); MONOCYTES % (MANUAL) 12 % (0-11.0); NEUTROPHILS % (MANUAL) 69 (42-76)
[2022-11-12 12:00] VITALS: BP 119/66
[2022-11-12] MEDS: BISACODYL SUPP (10 MG) 10 MG/SUPP.RECT SUPP.RECT RC PRN (15:54)
[2022-11-12 16:00] VITALS: BP 128/68
[2022-11-12] MEDS: POLYETHYLENE GLYCOL 3350 17 GM POWD.PACK PO PRN (16:36)
[2022-11-12 16:37] VITALS: BP 128/68
--- NOTE | 2022-11-12 18:01 | NUR ---
END OF SHIFT SUMMARY PATIENT IS A/O X3, FORGETFUL. ON 02 AT 1 LPM VIA NC FOR SUPPORT, SATURATING WELL. PATIENT IS FOR DISCHARGE AND [facility] GO[facility] TO [facility]. PHOTOS TAKEN AND DOCUMENTED. KAREN ML, INTACT AND PATENT. CANDELARIO CATHETER IN PLACE, DRAINING WELL TO GRAVITY. ON TELE, SR 60S. PATIENT WAS CRYING COMPLAINING OF CONSTIPATION. SUPPOSITORY, MIRALAX AND COLACE GIVEN. PT HAD BM X1 AFTER. SAFETY MEASURES MAINTAINED. BED IN LOWEST POSITION, BRAKES LOCKED. SIDE RAILS UP X2. CALL LIGHT WITHIN REACH. TRANSPORTATION ARRANGED AT 1999. UNABLE TO GIVE REPORT. PER JENNIFER FROM [facility] NO[facility]ODY IS AVAILABLE TO TAKE THE REPORT. WILL ENDORSE TO ONCOMING SHIFT.
--- NOTE | 2022-11-12 19:42 | NUR ---
REPORT GIVEN TO KATHRYN PEREZ FROM [facility].
--- NOTE | 2022-11-12 21:00 | NUR ---
2100 Discharged to [place] [facility] in stable condition.
== END 2022-11-12 21:00 | DRG 377 ==
LOC: ER 18:18 → TELE1 22:28
PROVIDERS: ADMIT Nurse Practitioner Family; ATTEND Internal Medicine
PROC: 30233N1 Transfusion of Nonautologous Red Blood Cells into Peripheral Vein, Percutaneous Approach (ICD-10-PCS; principal; 2022-11-04)
PROC: 05HB33Z Insertion of Infusion Device into Right Basilic Vein, Percutaneous Approach (ICD-10-PCS; 2022-11-04)
PROC: B51BYZZ Fluoroscopy of Right Lower Extremity Veins using Other Contrast (ICD-10-PCS; 2022-11-07)
PROC: B519YZZ Fluoroscopy of Inferior Vena Cava using Other Contrast (ICD-10-PCS; 2022-11-07)
PROC: 05HF33Z Insertion of Infusion Device into Left Cephalic Vein, Percutaneous Approach (ICD-10-PCS; 2022-11-07)
DX: K92.2 Gastrointestinal hemorrhage, unspecified (principal); G92.8 Other toxic encephalopathy; I26.99 Other pulmonary embolism without acute cor pulmonale; N17.0 Acute kidney failure with tubular necrosis; I69.354 Hemiplegia and hemiparesis following cerebral infarction affecting left non-dominant side; I82.412 Acute embolism and thrombosis of left femoral vein; I82.432 Acute embolism and thrombosis of left popliteal vein; J98.11 Atelectasis; D50.9 Iron deficiency anemia, unspecified; Z20.822 Contact with and (suspected) exposure to COVID-19; Z66 Do not resuscitate; Z79.82 Long term (current) use of aspirin; I12.9 Hypertensive chronic kidney disease with stage 1 through stage 4 chronic kidney disease, or unspecified chronic kidney disease; Z90.710 Acquired absence of both cervix and uterus; Z85.43 Personal history of malignant neoplasm of ovary; N18.9 Chronic kidney disease, unspecified; Z95.828 Presence of other vascular implants and grafts; K64.9 Unspecified hemorrhoids; E86.1 Hypovolemia; D63.8 Anemia in other chronic diseases classified elsewhere; Z91.81 History of falling; Z79.899 Other long term (current) drug therapy; I27.20 Pulmonary hypertension, unspecified; R91.1 Solitary pulmonary nodule; R62.7 Adult failure to thrive; K59.00 Constipation, unspecified; Z92.21 Personal history of antineoplastic chemotherapy
CPT/HCPCS: 36415; 36600; 71045-TC; 74018; 76770-TC; 80048-TC; 80076-TC; 82728-TC; 82803-TC; 83540-TC; 83605-TC; 83735-TC; 83880; 84100-TC; 84443-TC; 84484-TC; 85025-TC; 85027-TC; 85378-TC; 85610-TC; 85730-TC; 86850-TC; 87040-TC; 87081-TC; 87086-TC; 92526; 92611-TC; 93307-TC; 93970-TC; 97110-TC; 97112-TC; 97116-TC; 97530-TC; C1769; C9113; C9803; G0378; J1644; J2250; J2270; J3010; J3490; J7030; J7050; P9016; Q0163; Q9967

== ENCOUNTER 2025-10-16 20:35 | Inpatient (IN) | payer MEDICARE, OTHER ==
[~2025-10-16] VITALS: Ht 165.1 cm; Wt 62.6 kg
[~2025-10-16 20:35] MED LIST changes: +ASPI-1169 PO; -ASPI1TAB2 PO; +ATOR10TA PO; +CARV25TA2 PO; +ESOM20CA PO; +LOSA50TA39 PO; -Rivaroxaban PO
[2025-10-16] MEDS: ALBUTEROL FS 2.5 MG/3 ML VIAL.NEB NEB ONE (21:28)
[2025-10-16] MEDS: IPRATROPIUM NEB FS 0.5 MG/2.5 ML AMPUL.NEB NEB ONE (21:28)
[2025-10-16] MEDS: AZITHROMYCIN 500 MG in IV D5W 250 ML IV ONE (21:30)
[2025-10-16] MEDS ORDERED: IPRATROPIUM NEB FS 0.5 MG/2.5 ML AMPUL.NEB ONE (21:34)
[2025-10-16] MEDS ORDERED: ALBUTEROL FS 2.5 MG/3 ML VIAL.NEB ONE (21:34)
[2025-10-16 21:37] VITALS: O2SAT 95
[2025-10-16] MEDS ORDERED: CEFTRIAXONE 1GM BAG (ER ONLY) 50 ML IV ONE (21:51)
[2025-10-16] MEDS: CEFTRIAXONE 1GM BAG (ER ONLY) 50 ML IV ONE (21:55)
[2025-10-16] MEDS ORDERED: AZITHROMYCIN 500 MG VIAL ONE (21:58)
[2025-10-16 21:59] LABS: PLATELET COUNT (AUTO) 145 K/uL (150-450); RED BLOOD CELL COUNT(AUTO) 3.64 MIL/uL (4.0-5.2); RED CELL DISTRIBUTION WIDTH 19.8 % (11.5-15.0); WHITE BLOOD COUNT (AUTO) 5.3 K/uL (4.3-11.0)
[2025-10-16 22:25] LABS: CALCIUM, SERUM 8.5 mg/dL (8.5-10.1); CREATININE 0.8 mg/dL (0.6-1.3); SODIUM SERUM 139.0 mmol/L (136-145); UREA NITROGEN, BLOOD 23.0 mg/dL (7-18)
[2025-10-16 22:31] LABS: ASPARTATE AMINOTRANSFERASE 44.0 U/L (15-37); TOTAL PROTEIN, SERUM 6.8 g/dL (6.4-8.2)
[2025-10-16 22:34] LABS: INR 1.31 (0.91-1.10)
[2025-10-16 22:35] LABS: LACTIC ACID 0.6 mmol/L (0.4-2.0)
[2025-10-16 22:37] VITALS: O2SAT 99
[2025-10-16] MEDS ORDERED: IV NS 0.9% 250 ML IV ONE (22:44)
[2025-10-16] MEDS ORDERED: IOHEXOL-350 100 ML VIAL IV ONE (22:44)
[2025-10-16] MEDS ORDERED: IPRATROPIUM NEB FS 0.5 MG/2.5 ML AMPUL.NEB NEB PRN (23:30)
[2025-10-16] MEDS ORDERED: ONDANSETRON HCL/PF 4 MG/2 ML VIAL IVP PRN (23:30)
[2025-10-16] MEDS ORDERED: Z GUARD REMEDY 4 OZ OINT TP PRN (23:30)
[2025-10-16] MEDS ORDERED: ALBUTEROL FS 2.5 MG/3 ML VIAL.NEB NEB PRN (23:30)
[2025-10-16] MEDS ORDERED: MAG HYDROX/AL HYDROX/SIMETH 30 ML UDC PO PRN (23:30)
[2025-10-17] VITALS (16 sets, daily range): BP systolic 114–139; BP diastolic 48–72; TEMP 97.5–97.7; O2SAT 91–100
[2025-10-17] MEDS: ACETAMINOPHEN 325 MG TABLET PO PRN (01:41)
[2025-10-17] MEDS: PANTOPRAZOLE 40 MG TABLET.DR PO SCH (07:46)
[2025-10-17] MEDS: CEFTRIAXONE 1 G in IV D5W 50 ML IV SCH (08:25)
[2025-10-17 08:44] LABS: PLATELET COUNT (AUTO) 146 K/uL (150-450); RED BLOOD CELL COUNT(AUTO) 3.73 MIL/uL (4.0-5.2); RED CELL DISTRIBUTION WIDTH 19.4 % (11.5-15.0); WHITE BLOOD COUNT (AUTO) 3.1 K/uL (4.3-11.0)
[2025-10-17 09:17] LABS: CALCIUM, SERUM 8.8 mg/dL (8.5-10.1); CREATININE 0.9 mg/dL (0.6-1.3); PHOSPHORUS 3.5 mg/dL (2.5-4.9); SODIUM SERUM 137.0 mmol/L (136-145); UREA NITROGEN, BLOOD 22.0 mg/dL (7-18)
[2025-10-17] MEDS ORDERED: CARV12.52 PO (09:42)
[2025-10-17] MEDS ORDERED: DIPH25CA83 PO (09:42)
[2025-10-17] MEDS ORDERED: POLY17PO4 PO (09:42)
[2025-10-17] MEDS ORDERED: FERR325T23 PO (09:42)
[2025-10-17] MEDS ORDERED: PANT40TA49 PO (09:42)
[2025-10-17] MEDS ORDERED: RIVA15TA PO (09:42)
[2025-10-17] MEDS ORDERED: TRAM100T39 PO (09:42)
[2025-10-17] MEDS: DOXYCYCLINE 100 MG in IV D5W 100 ML IV SCH (10:00)
[2025-10-17] MEDS: ALBUTEROL FS 2.5 MG/3 ML VIAL.NEB NEB SCH (10:22)
[2025-10-17] MEDS: IPRATROPIUM NEB FS 0.5 MG/2.5 ML AMPUL.NEB NEB SCH (10:22)
[2025-10-17] MEDS: FUROSEMIDE 20 MG/2 ML VIAL IV STA (12:15)
[2025-10-17] MEDS: PHENAZOPYRIDINE HCL 200 MG TABLET PO PRN (15:02)
[2025-10-17] MEDS: ACETYLCYSTEINE 10% SOLN 400 MG/4 ML VIAL NEB SCH (15:47)
[2025-10-17 15:51] LABS: LDL 113.0 mg/dL (0-99)
[2025-10-17] MEDS ORDERED: RIVAROXABAN 15 MG TABLET PO SCH (17:00)
[2025-10-17] MEDS: APIXABAN 5 MG TABLET PO SCH (17:11)
[2025-10-17 17:35] LABS: APPEARANCE,URINE CLEAR (CLEAR); BLOOD, URINE 1+ Ery/uL (NEGATIVE); LEUKOCYTE ESTERASE ,URINE NEGATIVE (NEGATIVE); NITRITE, URINE NEGATIVE (NEGATIVE); UGLUCOSE NEGATIVE (NEGATIVE)
[2025-10-17 17:48] LABS: ADD URINE CULTURE NO; SQUAMOUS EPITHELIAL CELL,UR Few /HPF (None Seen)
[2025-10-18] VITALS (15 sets, daily range): BP systolic 117–135; BP diastolic 51–74; TEMP 97.3–98; O2SAT 94–100
[2025-10-18] MEDS: TRAMADOL HCL 50 MG TABLET PO PRN (04:50)
[2025-10-18] MEDS ORDERED: PANTOPRAZOLE 40 MG TABLET.DR PO SCH (07:30)
[2025-10-18] MEDS: FERROUS SULFATE (325 MG) 325 MG/TAB TABLET PO SCH (08:25)
[2025-10-18] MEDS: POLYETHYLENE GLYCOL 3350 17 GM POWD.PACK PO SCH (08:26)
[2025-10-18] MEDS ORDERED: RIVAROXABAN 15 MG TABLET PO SCH (09:00)
[2025-10-19] VITALS (19 sets, daily range): BP systolic 110–149; BP diastolic 49–80; TEMP 97.7–98.8; O2SAT 93–100
[2025-10-19] MEDS: ZOLPIDEM TARTRATE 10 MG TABLET PO PRN (01:48)
[2025-10-19] MEDS: DOXYCYCLINE HYCLATE (100 MG) 100 MG TABLET PO SCH (09:38)
[2025-10-20] VITALS (15 sets, daily range): BP systolic 119–143; BP diastolic 63–78; TEMP 97.7–97.9; O2SAT 92–99
[2025-10-20] MEDS ORDERED: POLYETHYLENE GLYCOL 3350 17 GM POWD.PACK PO SCH (11:30)
[2025-10-21] VITALS (9 sets, daily range): BP systolic 129–154; BP diastolic 66–80; TEMP 97.7–99; O2SAT 92–99
[2025-10-21] MEDS: MAGNESIUM HYDROXIDE 30 ML UDC PO PRN (04:49)
[2025-10-21] MEDS ORDERED: FERR325T28 PO (12:33)
[2025-10-21] MEDS ORDERED: DOXY100T2 PO (12:33)
[2025-10-21] MEDS ORDERED: APIX5TAB PO (12:33)
[2025-10-21] MEDS ORDERED: ACET1OOV6 NEB (12:33)
[2025-10-21] MEDS ORDERED: IPRA0.2S9 NEB (12:33)
[2025-10-21] MEDS ORDERED: ALBUT2 NEB (12:33)
[2025-10-21] MEDS ORDERED: PANT40TA49 PO (12:33)
== END 2025-10-21 16:30 | disposition home health service (06) | DRG 193 ==
LOC: ER 20:41 → TELE1 23:26 → MEDSG1 10-19 09:30
PROVIDERS: ADMIT Nurse Practitioner Acute Care; ATTEND Nurse Practitioner Acute Care
DX: J15.9 Unspecified bacterial pneumonia (principal); I50.33 Acute on chronic diastolic (congestive) heart failure; J96.21 Acute and chronic respiratory failure with hypoxia; E44.0 Moderate protein-calorie malnutrition; I27.20 Pulmonary hypertension, unspecified; Z66 Do not resuscitate; I11.0 Hypertensive heart disease with heart failure; D69.6 Thrombocytopenia, unspecified; J44.0 Chronic obstructive pulmonary disease with (acute) lower respiratory infection; Z79.01 Long term (current) use of anticoagulants; I69.354 Hemiplegia and hemiparesis following cerebral infarction affecting left non-dominant side; D63.8 Anemia in other chronic diseases classified elsewhere; I71.21 Aneurysm of the ascending aorta, without rupture; J44.1 Chronic obstructive pulmonary disease with (acute) exacerbation; Z86.718 Personal history of other venous thrombosis and embolism; Z86.711 Personal history of pulmonary embolism; Z85.43 Personal history of malignant neoplasm of ovary; Z87.891 Personal history of nicotine dependence; Z68.23 Body mass index [BMI] 23.0-23.9, adult; K64.9 Unspecified hemorrhoids; Z79.82 Long term (current) use of aspirin; Z79.899 Other long term (current) drug therapy; Z90.2 Acquired absence of lung [part of]; Z90.710 Acquired absence of both cervix and uterus; Z95.828 Presence of other vascular implants and grafts; E88.09 Other disorders of plasma-protein metabolism, not elsewhere classified
CPT/HCPCS: 36415; 71045-TC; 80048-TC; 80061-TC; 80076-TC; 81001; 83605-TC; 83735-TC; 83880; 84100-TC; 85025-TC; 85378-TC; 85730-TC; 87040-TC; 87081-TC; 87086-TC; 92526; 92611; 93307-TC; 94762-TC; 94799-TC; 97110-TC; 97112-TC; 97530-TC; A4223; G0378; J0456; J0696; J1200; J1938; J2919; J3490; J7050; J7060; Q9967